=== PATIENT | male | born 1975 | race Caucasian/White ===

== ENCOUNTER 2016-08-04 03:32 | Emergency (ER) | payer BC | END 2016-08-04 04:57 | disposition home or self-care (01) | LOC: ER 03:32 | DX: R07.89 Other chest pain (principal); F17.200 Nicotine dependence, unspecified, uncomplicated; Z88.8 Allergy status to other drugs, medicaments and biological substances | CPT/HCPCS: 71020; 71100-LT; 99284; A9270-GY ==